=== PATIENT | male | born 1985 | race Caucasian/White ===

== ENCOUNTER 2023-11-02 20:58 | Inpatient (IN) | payer OTHER, SELFPAY ==
[2023-11-02] VITALS (25 sets, daily range): BP systolic 110–207; BP diastolic 59–122; PULSE 87–135; RESP 12–32; TEMP 36.6; O2SAT 95–100
--- NOTE | ~2023-11-02 | CT_ITS ---
EXAMINATION: CTA chest DATE: 11/02/2023 21:41 INDICATION: CP/ BP TECHNIQUE: Computed tomography angiography (CTA) of the chest was performed with 100 mL Omnipaque-350 intravenous contrast. Automated exposure control and iterative reconstruction technique were employe d. The dose-length product was 1018.62 mGy-cm. COMPARISON: X-ray chest same date; CT abdomen pelvis 11/02/2023. FINDINGS: CHEST: Considerable respiratory and patient motion present throughout the examination. Thoracic aorta: No significant dilation or calcification. Lung parenchyma and airways: Lungs and airways are clear. Thoracic inlet, axillae and chest wall: Considerable motion artifact in the lower neck. No axillary l ymphadenopathy. Mediastinum: No mass or lymphadenopathy. No central pulmonary embolus. Heart and pericardium: Mild cardiomegaly. No pericardial effusion. Coronary artery calcifications: Moderate. Pleura: No effusion or mass. Upper abdomen: No significant finding. Thoracic bones: No acute osseous finding in the chest. IMPRESSION: Motion limited examination. No aortic aneurysm or dissection. No definite acute thoracic process dete cted. Reviewed, dictated and finalized at location K. IMPRESSION: Motion limited examination. No aortic aneurysm or dissection. No definite acute thoracic process detected.
--- NOTE | ~2023-11-02 | CT_ITS ---
EXAMINATION: CT brain wo con DATE: 11/02/2023 22:44 INDICATION: AMS . TECHNIQUE: Computed tomography (CT) of the head was performed without intravenous contrast. The mA wa s adjusted according to patient size. Iterative reconstruction technique was employed. The dose-lengt h product was 832.33 mGy-cm. COMPARISON: None. FINDINGS: No acute intracranial hemorrhage or extra-axial fluid collection. No hydrocephalus, mass, or herniation. No acute ischemic infarct. Unremarkable dural venous sinus attenuation. No acute osseous abnormality. Ethmoid mucosal thickening, the remaining aerated spaces are clear. IMPRESSION: No acute intracranial process. Reviewed, dictated and finalized at location K.
--- NOTE | ~2023-11-02 | XR_ITS ---
EXAMINATION: XR chest 1V portable Exam Date/Time: 11/02/2023 21:15 CDT HISTORY: CP HIGH BP UNRESPONSIVE Comparison: None. RESULT: Lines, tubes, and devices: None. Lungs and pleura: Clear. Cardiomediastinal silhouette: Unremarkable. Other: No acute osseous or upper abdominal finding. IMPRESSION: No acute cardiopulmonary process. Reviewed, dictated and finalized at location K.
--- NOTE | 2023-11-02 21:05 | ECG_ITS ---
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 Measurements Intervals [place] Rate: 128 P: 45 IN: 136 QRS: 75 QRSD: 94 T: 18 QT: 331 QTc: 484 Interpretive Statements SINUS TACHYCARDIA No previous ECG available for comparison Electronically Signed On 11-03-2023 13:56:17 CDT by Serafin Naranjo M.D.
[2023-11-02] MEDS: ASPIRIN 81 MG CHEWABLE TABLET 324 MG PO (21:13)
[2023-11-02 21:18] LABS: Basophils Absolute Auto 0.1 K/mm3 (0.0-0.1); Basophils Percent Auto 0.6 % (0.2-1.2); Eosinophils Absolute Auto 0.1 K/mm3 (0-0.3); Eosinophils Percent Auto 1.1 % (0-4.4); Hematocrit 50.1 % (42.0-52.0); Hemoglobin 18.2 g/dL (14.0-18.0); Immature Granulocyte Absolute 0.03 K/mm3 (0.00-0.031); Immature Granulocyte Percent A 0.3 % (0-0.5); Lymphocytes Absolute Auto 3.11 K/mm3 (0.9-3.2); Lymphocytes Percent Auto 30.5 % (18.3-44.2); Mean Corpuscular HGB Conc 36.3 g/dl (32-36); Mean Corpuscular Hemoglobin 31.5 pg (26-34); Mean Corpuscular Volume 86.8 fl (80-100); Mean Platelet Volume 10.2 fl (7.4-10.4); Monocytes Absolute Auto 0.9 K/mm3 (0.1-0.6); Monocytes Percent Auto 8.4 % (2.6-8.5); Neutrophils Percent Auto 59.1 % (45.5-73.1); Platelet Count Result 239 k/mm3 (150-375); Red Blood Count 5.77 M/mm3 (4.6-6.20); White Blood Count 10.2 K/mm3 (4.5-10.0)
--- NOTE | 2023-11-02 21:25 | ED.CHESTPAIN ---
HPI - Chest Pain General Chief Complaint: Chest Pain Stated Complaint: chest pain, increased BP Time Seen by Provider: 11/02/23 21:15 History of Present Illness HPI narrative: Patient is a 38-year-old male who presents to the emergency department this evening complaining of chest pain for the past 3 weeks. Mother is present at bedside and provides the majority of the history of present illness as patient is a poor historian and refusing to give me a proper history of present illness. Patient is moving all 4 extremities spontaneously and maintaining his oxygenation at 97% on room air and protecting his airway. Mother states that he has been having a lot of stress at work the past couple of weeks and this chest pain. Patient is not elaborating on the character of the chest pain. Patient was also noted to be hypertensive with systolic blood pressure over 200. Mother denies any history of hypertension as far she is aware, patient is a diabetic. Mother also states that he does have a history of IV heroin use although he has not used any heroin for the past 8 years. She did state that he took a pill that a friend gave him a few days ago and believes it was Percocet. The remainder history of present illness is limited. Related Data Allergies Allergy/AdvReac Type Severity Reaction Status Date / Time Penicillins Allergy Unknown Verified 05/01/14 10:34 Review of Systems Review of Systems: All systems are reviewed and are negative unless stated otherwise in the [facility] Social History Social History Smoking status: Current every day smoker Alcohol intake: never Exam Narrative: General: Awake, afebrile, anxious, afebrile, diaphoretic. HEENT: PERRL, no rhinorrhea, no post nasal drip, oropharynx clear. Cardiovascular: Tachycardic with regular rhythm, no murmurs, rubs or gallops, no peripheral edema. Respiratory: Clear to auscultation bilaterally, no tachypnea, no wheezing, no rhonchi, no rubs, no respiratory distress. Abdomen: Soft, nontender, nondistended, no rebound, no guarding, no peritoneal signs. Musculoskeletal: Intermittent shaking of all 4 extremities. Skin: No rashes or petechia, no signs of infection. Neurological: Patient is moving all 4 extremities spontaneously, not cooperating with exam or following my commands, no focal deficits appreciated at this time, exam is limited secondary to patient's uncooperativeness and altered mentation. GCS 11. Course Vital Signs Vital signs: Vital Signs Pulse Rate 122 H 11/02/23 21:07 Temperature 97.8 F 11/02/23 21:08 Pulse Rate 100 11/02/23 22:51 Respiratory Rate 17 11/02/23 22:51 Blood Pressure 134/84 11/02/23 22:51 Pulse Oximetry 95 11/02/23 22:51 Oxygen Delivery Room Air 11/02/23 21:08 MDM - Chest Pain MDM Narrative Medical decision making narrative: The patient was evaluated by myself in the emergency department. History is obtained from patient and mother present at bedside and physical exam was performed. External medical records were reviewed at this time. IV was established and pertinent tests were ordered. Patient was placed on four-point restraints at this time to obtain IV and blood work as he is extremely agitated, uncooperative and refuses to sit still or follow any verbal commands. Patient was also administered 1 g of IV Ativan at this time. Patient was administered 1 L IV fluid bolus and 20 mg of IV labetalol given his a blood pressure of 226/103 mmHg. EKG was obtained which revealed sinus tachycardia rate of 128 beats per minute. No ST changes, T wave inversions or evidence of acute ischemia. EKG was independently interpreted by me and is currently pending official cardiology read. Repeat 3 hour EKG reveals sinus rhythm at a rate of 78 beats per minute. EKG currently pending official cardiology read. Laboratory results obtained revealing a potassium of 3.1, lact
[2023-11-02 21:29] LABS: Alanine Aminotransferase 26 U/L (6-50); Albumin Level 5.3 g/dL (3.5-5.1); Alkaline Phosphatase 78 U/L (38-126); Anion Gap 14 mmol/L (4-12); Aspartate Amino Transferase 27 U/L (17-59); Bilirubin,Total 1.2 mg/dL (0.2-1.3); Blood Urea Nitrogen 21 mg/dL (9-20); Calcium 9.1 mg/dL (8.4-10.2); Carbon Dioxide 20 mmol/L (22-30); Chloride 106 mmol/L (98-107); Estimated CRCL calculation 98 ml/min; Estimated Glomerular Filt Rate > 60; Glucose 185 mg/dL (65-110); Lipase 56 U/L (23-300); Magnesium 2.2 mg/dL (1.6-2.3); Potassium 3.1 mmol/L (3.4-5.0); Sodium 140 mmol/L (137-145)
[2023-11-02] MEDS: SODIUM CHLORIDE 0.9% IV 1,000 ML 999 ML IV CONT ×2 (21:30→22:06)
[2023-11-02] MEDS: LABETALOL HCL INJ 100 MG/20 ML VIAL 20 MG IV PUSH (21:31)
[2023-11-02 21:37] LABS: Partial Thromboplastin Time 20.2 Seconds (22.3-36.8); Prothrombin Time 13.2 Seconds (11.1-14.7)
[2023-11-02 21:42] LABS: Troponin I < 0.012 ng/mL (0.000-0.034)
[2023-11-02 21:44] LABS: Lactic Acid Reflex 2.6 mmol/L (0.7-2.0)
[2023-11-02] MEDS: ONDANSETRON INJ 4 MG/2 ML VIAL IV PUSH (21:50)
--- NOTE | 2023-11-02 21:51 | PC.NURSE ---
Per EDP Dr. Stuart give 2mg Narcan. Once Narcan was pulled from [facility] EDP Dr. Stuart advised to hold off on Narcan.
[2023-11-02 22:06] LABS: Creatine Kinase 301 U/L (55-170)
[2023-11-02 22:06] LABS: Barbiturate Screen Urine Negative (Negative); Benzodiazepines Screen Urine Negative (Negative)
[2023-11-02 22:07] LABS: Acetaminophen < 10 ug/mL (10-30); Salicylate < 1.0 mg/dL (2-20)
[2023-11-02] MEDS: LORazepam INJ (*CRX) 2 MG/ML VIAL 1 MG IV PUSH ×2 (22:13→22:52)
[2023-11-02 22:21] LABS: Cannabinoid Screen Urine Positive (Negative); Cocaine Screen Urine Negative (Negative); Methadone Screen Urine Negative (Negative); Opiate Screen Urine Negative (Negative); Phencyclidine Screen Urine Negative (Negative)
[2023-11-02 22:24] LABS: Add Urine Microscopic? YES; Appearance Urine Clear (Clear); Bacteria Urine None Seen /hpf; Bilirubin Urine Negative (Negative); Blood Urine Negative (Negative); Color Urine Dark Yellow (Yellow); Glucose Urine UA Negative (Negative); Ketones Urine 1+ mg/dL (Negative); Leukocyte Esterase Ur Negative LEU/UL (Negative); Mucus Urine Present /lpf; Need Manual Microscopic Reviewed; Nitrate Urine Negative (Negative); Protein Urine 1+ mg/dL (Negative); Specific Grav Ur 1.037 (1.001-1.035); Squamous Epithelial Cell Urine None Seen /hpf (Few); WBC Urine 0-5 /hpf (0-3); pH Urine 5.5 (5.0-9.0)
[2023-11-02 22:41] LABS: Influenza A QL RT-PCR Negative (Negative); Influenza B QL RT-PCR Negative (Negative); RSV RNA, RT-PCR Negative (Negative); SARS-CoV-2 RNA PCR Negative (Negative)
[2023-11-02 22:50] LABS: Amphetamine Screen Urine Positive (Negative)
--- NOTE | 2023-11-02 22:52 | PC.NURSE ---
upon entering the room patient was not able to speak. he was thrashing in the bed, tremors and shaking uncontrollably. family at bedside. mom states she spoke to a co-worker and he bought a percocet 2 days ago and also did meth 3 days prior. mom states that the co-worker also stated that he has not ate or drank anything in 3 days. patient unable to stay still for CT scan, provider aware and STAT order received for ativan. parents at bedside. patient in bed, seizure precautions initiated d/t uncontrollable movements. awaiting results
[2023-11-03] VITALS (38 sets, daily range): BP systolic 112–141; BP diastolic 62–93; PULSE 60–94; RESP 12–20; TEMP 36.4–36.9; O2SAT 96–100
--- NOTE | 2023-11-03 00:28 | PC.NURSE ---
Katy Matias - Mother -
--- NOTE | 2023-11-03 00:29 | ECG_ITS ---
[facility] [address] Test Date: 2023-11-03 Pat Name: Martín Calabrese Department: Room: Gender: M Index Clerk: : 1985 Requested By: Jonathan Hollingsworth Order Number: [id number] [place] MD: Serafin Naranjo M.D. Measurements Intervals [place] Rate: 78 P: 26 [place]: 148 QRS: 70 QRSD: 93 T: 20 QT: 372 QTc: 426 Interpretive Statements SINUS RHYTHM NONSPECIFIC T-WAVE ABNORMALITY Sinus tachycardia no longer present Electronically Signed On 11-03-2023 14:01:00 CDT by Serafin Naranjo M.D.
[2023-11-03 00:31] LABS: Reflex Lactic Acid Yes or No Add Lactic
--- NOTE | 2023-11-03 01:05 | PM.IMHP ---
H&P: HPI History of Present Illness Date/Time: 11/03/23 01:05 Chief Complaint: Chest pain Narrative: 38-year-old male with past medical history of morbid obesity, IV drug abuse and diabetes who presented to the ER with chest pain for a couple of weeks. The patient was altered in the ER and knock cooperative. Thus majority of the history was obtained from ER records and The patient is currently sedated is not providing history. In fact the patient has not provided any significant history since presentation to the ER. He told triage that he has been having chest pain for 3 weeks. He had called his mother just before he came to the ER and she arrived shortly there after. The mother reported to the ER staff that the patient has been having a lot of stress at work. Patient was unable or unwilling to elaborate on the character or nature of his chest pain. When patient arrived to the ER he was markedly hypertensive with systolic blood pressures over 200 and was tachycardic. Patient does not have a known history of hypertension but is diabetic. The patient does have a distant history of heroin use 8 years ago but was reportedly clean until he recently took a pill a friend gave him that was a Percocet according to the friends report. The patient's mother was able to contact the patient's friend who also newly informed her that the patient has been using methamphetamine for an unknown amount of time. Patient's mother is understandably upset about this is the patient had been living on the streets homeless and at the [facility] 8 years ago to his drug use. 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 She is quite concerned that his behaviors are going to compromise his current quality of life. Although the patient reportedly has history of diabetes he is not on any home meds. His initial glucose on arrival ER was 185 but came down to 110 after fluids. Had initial lactic acidosis had improved after 2 L fluid bolus. The patient's troponins had returned as negative x2 at the time of my evaluation. In the ER patient was so agitated that he required placement of 4 point soft restraints in addition to the 2 mg of Ativan. By the time my evaluation the patient was somnolent but would open his eyes to commands and would intermittently respond to commands such as sticking out his tongue. The patient would not give verbal responses to questions. Patient's blood pressures that were markedly elevated had improved somewhat with IV labetalol but completely normalized after Ativan administration. Review of Systems Review of Systems: ROS unobtainable: Yes unobtainable due to mental status PMFSH Past Medical History Medical History (Updated 11/03/23 @ 05:09 by Honey Waldrop DO) Intravenous drug abuse Obesity (BMI 30-39.9) Psychiatric illness History of risperidone use Type 2 diabetes mellitus Surgical History Surgical History (Updated 11/03/23 @ 05:09 by Honey Waldrop DO) History of excision of epidermal inclusion cyst (04/2015) From the back performed by Dr. 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 Smoking status: Current every day smoker Tobacco type: cigarettes Alcohol intake: never Substance use: current Substance use type: heroin, opiates and methamphetamine Meds Home Medications and Allergies Home Medications Medication Instructions Recorded Confirmed Type No Home Medications 11/03/23 11/03/23 History Allergies Allergy/AdvReac Type Severity Reaction Status Date / Time Penicillins Allergy Unknown Verified 05/01/14 10:34 Vital Signs
[2023-11-03 01:07] LABS: Troponin I < 0.012 ng/mL (0.000-0.034)
[2023-11-03 01:37] LABS: Lactic Acid 0.8 mmol/L (0.7-2.0)
--- NOTE | 2023-11-03 03:05 | ECG_ITS ---
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 Measurements Intervals [place] Rate: 97 P: 16 [place]: 148 QRS: 65 QRSD: 97 T: -10 QT: 349 QTc: 443 Interpretive Statements SINUS RHYTHM NONSPECIFIC T-WAVE ABNORMALITY Compared to ECG 11/03/2023 00:33:21 NO SIGNIFICANT CHANGES Electronically Signed On 11-03-2023 14:12:07 CDT by Serafin Naranjo M.D.
[2023-11-03 03:38] LABS: Troponin I < 0.012 ng/mL (0.000-0.034)
[2023-11-03 04:28] LABS: Glucose Point of Care 110 mg/dl (65-105)
--- NOTE | 2023-11-03 04:42 | ADMGEN ---
This patient, Martín Calabrese, was admitted to IMU Room 206-02. Patient/family oriented to hospital policies and general routines including ID bracelet, bed and alarms, visiting hours, pain management, procedures, bathroom and other care routines, personal items, smoking policy, room service/diet, and visiting hours. Information on how to activate the Rapid Response Team has been discussed. Patient/Family are encouraged to report perceived risks to care and to ask questions if they do not understand what they are told or what they should do.
[2023-11-03] MEDS: SODIUM CHLORIDE 0.9% IV 1,000 ML 150 ML IV CONT ×3 (06:33→18:52)
--- NOTE | 2023-11-03 08:06 | PM.IMPN ---
Progress Note: A&P Assessment and Plan (1) Acute alteration in mental status: Code(s): R41.82 - Altered mental status, unspecified Status: Acute (2) Chest pain: Code(s): R07.9 - Chest pain, unspecified Status: Acute (3) Polysubstance abuse: Code(s): F19.10 - Other psychoactive substance abuse, uncomplicated Status: Acute (4) Intravenous drug abuse: Code(s): F19.10 - Other psychoactive substance abuse, uncomplicated Status: Acute Plan 38-year-old male with past medical history of morbid obesity, IV drug abuse and diabetes who presented to the ER with chest pain for a couple of weeks. The patient was altered in the ER and knock cooperative. Thus majority of the history was obtained from ER records and The patient is currently sedated is not providing history. He told triage that he has been having chest pain for 3 weeks. He had called his mother just before he came to the ER and she arrived shortly there after. The mother reported to the ER staff that the patient has been having a lot of stress at work. Patient was unable or unwilling to elaborate on the character or nature of his chest pain. When patient arrived to the ER he was markedly hypertensive with systolic blood pressures over 200 and was tachycardic. Acute encephalopathy Possible due to substance abuse and hypertension cephalopathy History of methamphetamine abuse, drug screening positive marijuana and amphentermine chest pain. 3 neg cardiac enzymes. EKG shows sinus rhythm, tachycardia, T-wave inversion lead 3, T-wave flight AVF Chest pain was likely due to active intoxication with amphetamines causing hypertensive crisis. Telemetry monitoring Order echocardiogram Consult esthetician permanent makeup artist Hypertension emergency Patient present ED with high blood pressure 207/116, associated with confusion Blood pressure is controlled after receiving 1 dose of labetalol and Ativan. Start amlodipine 10 mg daily p.o. Anion gap metabolic acidosis Possible due to lactic acidosis Received fluid resuscitation, lactic acidosis resolves No obvious sign of infection Follow-up alcohol level Dehydration, hypokalemia Elevated BUN creatinine ratio Possible due to dehydration and inadequate electrolyte intake Received fluid resuscitation provide oral potassium supplementation due to mild hypokalemia. Repeat electrolyte panel in a.m.. agitation History of 2nd issue order, agitation likely secondary to amphetamine provide sinus 1 mg q.6 hours p.r.n., Ativan 0.5 mg IV p.r.n. for breakthrough of anxiety diabetes fasting Glucose 129, A1c 6.4 new diagnosed diabetes Start insulin sliding scale a.c. q.h.s. consult tire trucker Patient is unable to reliably report if he has home medications/rpyr-yia-utvliyu or prescription. Subjective Date/time seen: 11/03/23 08:06 Interval history: I saw exam patient today, patient was lethargic, but agitated intermittently, patient denies chest pain shortness breaths when I saw examined the patient. Exam Narrative: GENERAL: lethargic, in no acute distress. Well-nourished. - EYES: EOMI. Anicteric. - HENT: Moist mucous membranes. - LUNGS: Clear to auscultation bilaterally, no wheezing, rhonchi, or rales. - CARDIOVASCULAR: Regular rate and rhythm. No murmur. No JVD. - ABDOMEN: Soft, non-tender and non-distended. No palpable masses. - EXTREMITIES: No edema. Peripheral pulses 2+. Non-tender. - NEUROLOGIC: No focal neurological deficits. CN II-XII grossly intact. - PSYCHIATRIC: Awake, Alert and oriented x 3. agitated - SKIN: No rashes or lesions. Warm. - LYMPH: No cervical lymphadenopathy. Objective Data Vital Signs Vital Signs: Vital Signs - 24 hr 11/02/23 21:07 11/02/23 21:08 11/02/23 21:08 Temperature 97.8 F Pulse Rate 122 H 135 H Respiratory Rate 20 Blood Pressure 207/116 H Pulse Oximetry 97 100 Oxygen Delivery Room Air Room Air
--- NOTE | 2023-11-03 08:27 | PM.CNCAR ---
Assessment and Plan Assessment and plan (1) Chest pain: Code(s): R07.9 - Chest pain, unspecified Status: Acute Plan This is a 38-year-old man with a variety of symptoms on admission to the hospital among them was some chest discomfort. There is no evidence of acute coronary syndrome by ECG and serial troponin levels. It is presumably his amphetamine usage and amphetamine withdrawal that resulted in these symptoms that he is describing. He has no reason to be hospitalized cardiac-gutierrez and there is no need to conduct an ischemia evaluation in this setting. His disposition will be of course defer to the primary team there is no cardiac issue that would necessitate follow-up in our office Duncan Murrell MD [facility] History of Present Illness History of Present Illness Consult date/time: 11/03/23 08:27 Reason For Visit: AMS, Drug overdose/withdrawal Narrative: This is a 38-year-old man I am seeing at the request of the hospitalist because of chest pain. Patient is unknown to me prior to this consultation and is not known to have heart disease prior to this. He came to the emergency room yesterday with a variety of symptoms including a significant posterior headache the sensation of some central chest discomfort the sensation of paresthesias in both arms and he was concerned that his blood pressure was very high. He is says he visited the emergency room in 1 of the hospitals in [place] within the last several days at was seen and released he also went to an urgent care center who expressed concern that his blood pressure was very high. He states the symptoms began last weekend on Wednesday he told the emergency room they began 2-3 weeks ago. His electrocardiogram in the emergency room is unremarkable he has tried serial troponin levels on the chart which are also unremarkable. He in normal life does not have any exertional symptoms such as dyspnea chest pain he does not experience orthopnea PND edema palpitations and has no history of syncope. He unfortunately has a history of illicit drug abuse which I did not question him about in detail as the nurse warned me that the patient becomes violent when these issues are discussed. His drug screen on admission was positive for amphetamine and marijuana. Because of the symptoms I have been asked to see him in consultation. He says that he has a history of hypertension and non insulin-dependent diabetes and is on no medical treatment for any of these as he does not see a physician. Review of Systems Constitutional: Constitutional: Reports no additional constitutional complaints Eyes: Eyes: Reports no additional eye complaints ENT: Reports system reviewed and no additional complaints, except as documented Cardiovascular: Cardiovascular: Reports as per HPI Respiratory: Respiratory: Reports no additional respiratory complaints Gastrointestinal: Gastrointestinal: Reports no additional gastrointestinal complaints Musculoskeletal: Musculoskeletal: Reports no additional musculoskeletal complaints Neurologic: Reports as per HPI Psychiatric: Psychiatric: Reports as per HPI Endocrine: Endocrine: Reports no additional endocrine complaints Hematologic/Lymphatic: Hematologic/Lymphatic: Reports no additional hematologic/lymphatic complaints Allergic/Immunologic: Allergic/Immunologic: Reports no additional allergic/immunologic complaints [facility] Past Medical History Medical History (Updated 11/03/23 @ 05:09 by Honey Waldrop DO) Intravenous drug abuse Obesity (BMI 30-39.9) Psychiatric illness History of risperidone use Type 2 diabetes mellitus Surgical History Surgical History (Updated 11/03/23 @ 05:09 by Honey Waldrop DO) History of excision of epidermal inclusion cyst (04/2015) From the back performed by Dr. Sánchez Family History Family History (Updated 11/03/23 @ 05:09 by Honey Waldrop DO) Other Unknown family medical history Social History So
[2023-11-03] MEDS: amLODIPine BESYLATE 5 MG TABLET 10 MG PO (08:58)
[2023-11-03] MEDS: POTASSIUM CHLORIDE 20 MEQ ER TABLET 40 MEQ PO (08:58)
[2023-11-03 09:07] LABS: Basophils Percent Auto 0.7 % (0.2-1.2); Eosinophils Absolute Auto 0.1 K/mm3 (0-0.3); Eosinophils Percent Auto 2.4 % (0-4.4); Hematocrit 42.6 % (42.0-52.0); Hemoglobin 14.7 g/dL (14.0-18.0); Immature Granulocyte Absolute 0.02 K/mm3 (0.00-0.031); Immature Granulocyte Percent A 0.3 % (0-0.5); Mean Corpuscular HGB Conc 34.5 g/dl (32-36); Mean Corpuscular Hemoglobin 30.9 pg (26-34); Mean Corpuscular Volume 89.7 fl (80-100); Mean Platelet Volume 10.4 fl (7.4-10.4); Monocytes Absolute Auto 0.5 K/mm3 (0.1-0.6); Monocytes Percent Auto 7.7 % (2.6-8.5); Neutrophils Absolute Auto 3.5 K/mm3 (1.3-6.7); Neutrophils Percent Auto 59.9 % (45.5-73.1); Platelet Count Result 145 k/mm3 (150-375); Red Blood Count 4.75 M/mm3 (4.6-6.20); White Blood Count 5.9 K/mm3 (4.5-10.0)
[2023-11-03 09:09] LABS: Hematocrit 42.3 % (42.0-52.0); Hemoglobin 14.8 g/dL (14.0-18.0); Immature Platelet Fraction Pct 4.7 % (0.9-11.2); Mean Corpuscular Hemoglobin 31.4 pg (26-34); Mean Corpuscular Volume 89.6 fl (80-100); Mean Platelet Volume 10.3 fl (7.4-10.4); Platelet Count Result 144 k/mm3 (150-375); Red Blood Count 4.72 M/mm3 (4.6-6.20); White Blood Count 5.8 K/mm3 (4.5-10.0)
[2023-11-03] MEDS: NICOTINE (*PBKC) 21 MG PATCH 1 PATCH TRANSDERM (09:21)
[2023-11-03 09:23] LABS: Alanine Aminotransferase 20 U/L (6-50); Albumin Level 3.8 g/dL (3.5-5.1); Alkaline Phosphatase 50 U/L (38-126); Anion Gap 7 mmol/L (4-12); Aspartate Amino Transferase 19 U/L (17-59); Blood Urea Nitrogen 19 mg/dL (9-20); Calcium 8.3 mg/dL (8.4-10.2); Carbon Dioxide 22 mmol/L (22-30); Chloride 111 mmol/L (98-107); Creatine Kinase 179 U/L (55-170); Estimated CRCL calculation 112 ml/min; Estimated Glomerular Filt Rate > 60; Glucose 129 mg/dL (65-110); Potassium 3.6 mmol/L (3.4-5.0); Sodium 140 mmol/L (137-145)
[2023-11-03 09:25] LABS: Anion Gap 6 mmol/L (4-12); Blood Urea Nitrogen 18 mg/dL (9-20); Calcium 8.4 mg/dL (8.4-10.2); Carbon Dioxide 23 mmol/L (22-30); Chloride 110 mmol/L (98-107); Estimated CRCL calculation 112 ml/min; Estimated Glomerular Filt Rate > 60; Glucose 130 mg/dL (65-110); Magnesium 2.1 mg/dL (1.6-2.3); Phosphorus 3.7 mg/dL (2.5-4.5); Potassium 3.5 mmol/L (3.4-5.0); Sodium 139 mmol/L (137-145)
[2023-11-03 09:31] LABS: Hemoglobin A1C 6.4 % (<5.7)
[2023-11-03] MEDS: ALPRAZolam (*CRX) 0.5 MG TABLET 1 MG PO ×2 (09:55→17:19)
[2023-11-03] MEDS: LORazepam INJ (*CRX) 2 MG/ML VIAL 0.5 MG IV PUSH (20:17)
[2023-11-03 20:24] LABS: Glucose Point of Care 173 mg/dl (65-105)
[2023-11-04] VITALS (8 sets, daily range): BP systolic 120–160; BP diastolic 71–81; PULSE 56–89; RESP 12–20; TEMP 36.4–36.7; O2SAT 97–100
[2023-11-04] MEDS: SODIUM CHLORIDE 0.9% IV 1,000 ML 150 ML IV CONT (02:00)
[2023-11-04] MEDS: ALPRAZolam (*CRX) 0.5 MG TABLET 1 MG PO (04:11)
[2023-11-04 07:55] LABS: Glucose Point of Care 139 mg/dl (65-105)
[2023-11-04 08:03] LABS: Basophils Absolute Auto 0.1 K/mm3 (0.0-0.1); Eosinophils Absolute Auto 0.2 K/mm3 (0-0.3); Eosinophils Percent Auto 3.6 % (0-4.4); Hematocrit 41.7 % (42.0-52.0); Hemoglobin 14.6 g/dL (14.0-18.0); Immature Granulocyte Absolute 0.02 K/mm3 (0.00-0.031); Immature Granulocyte Percent A 0.4 % (0-0.5); Immature Platelet Fraction Pct 5.1 % (0.9-11.2); Lymphocytes Percent Auto 40.3 % (18.3-44.2); Mean Corpuscular Hemoglobin 31.3 pg (26-34); Mean Corpuscular Volume 89.5 fl (80-100); Mean Platelet Volume 11.2 fl (7.4-10.4); Monocytes Absolute Auto 0.3 K/mm3 (0.1-0.6); Monocytes Percent Auto 6.5 % (2.6-8.5); Neutrophils Absolute Auto 2.4 K/mm3 (1.3-6.7); Neutrophils Percent Auto 48.2 % (45.5-73.1); Platelet Count Result 112 k/mm3 (150-375); Red Blood Count 4.66 M/mm3 (4.6-6.20)
[2023-11-04 08:31] LABS: Anion Gap 6 mmol/L (4-12); Blood Urea Nitrogen 12 mg/dL (9-20); Calcium 8.3 mg/dL (8.4-10.2); Carbon Dioxide 19 mmol/L (22-30); Chloride 112 mmol/L (98-107); Estimated CRCL calculation 126 ml/min; Estimated Glomerular Filt Rate > 60; Glucose 134 mg/dL (65-110); Magnesium 1.9 mg/dL (1.6-2.3); Phosphorus 2.9 mg/dL (2.5-4.5); Potassium 4.2 mmol/L (3.4-5.0); Sodium 137 mmol/L (137-145)
[2023-11-04] MEDS: amLODIPine BESYLATE 5 MG TABLET 10 MG PO (08:34)
--- NOTE | 2023-11-04 10:22 | PM.IMPN ---
Progress Note: A&P Assessment and Plan (1) Acute alteration in mental status: Code(s): R41.82 - Altered mental status, unspecified Status: Acute (2) Chest pain: Code(s): R07.9 - Chest pain, unspecified Status: Acute (3) Polysubstance abuse: Code(s): F19.10 - Other psychoactive substance abuse, uncomplicated Status: Acute (4) Intravenous drug abuse: Code(s): F19.10 - Other psychoactive substance abuse, uncomplicated Status: Acute Plan 38-year-old male with past medical history of morbid obesity, IV drug abuse and diabetes who presented to the ER with chest pain for a couple of weeks. The patient was altered in the ER and knock cooperative. Thus majority of the history was obtained from ER records and The patient is currently sedated is not providing history. He told triage that he has been having chest pain for 3 weeks. He had called his mother just before he came to the ER and she arrived shortly there after. The mother reported to the ER staff that the patient has been having a lot of stress at work. Patient was unable or unwilling to elaborate on the character or nature of his chest pain. When patient arrived to the ER he was markedly hypertensive with systolic blood pressures over 200 and was tachycardic. Acute encephalopathy Possible due to substance abuse and hypertension cephalopathy History of methamphetamine abuse, drug screening positive marijuana and amphentermine now patient is alert oriented x3 chest pain. 3 neg cardiac enzymes. EKG shows sinus rhythm, tachycardia, T-wave inversion lead 3, T-wave flight AVF Chest pain was likely due to active intoxication with amphetamines causing hypertensive crisis. Telemetry monitoring Order echocardiogram Consult retail center receptionist, retail center receptionist recommends no further workup of cardiac ischemia Hypertension emergency Patient present ED with high blood pressure 207/116, associated with confusion Blood pressure is controlled after receiving 1 dose of labetalol and Ativan. Start amlodipine 10 mg daily p.o. changed to losartan 50 mg daily p.o. giving new onset diabetes Anion gap metabolic acidosis Possible due to lactic acidosis Received fluid resuscitation, lactic acidosis resolves No obvious sign of infection corrected Dehydration, hypokalemia Elevated BUN creatinine ratio Possible due to dehydration and inadequate electrolyte intake Received fluid resuscitation provide oral potassium supplementation due to mild hypokalemia. Repeat electrolyte panel in a.m.. corrected agitation History of 2nd issue order, agitation likely secondary to amphetamine provide sinus 1 mg q.6 hours p.r.n., Ativan 0.5 mg IV p.r.n. for breakthrough of anxiety well controlled diabetes fasting Glucose 129, A1c 6.4 new diagnosed diabetes Start insulin sliding scale a.c. q.h.s. consult clinical systems educator start metformin 500 mg daily p.o. on discharge provide patient above PCP contact information thrombocytopenia platelet 112, patient denies active bleeding request patient's stay for further workup, plans to consult police service technician for evaluation and treatment patient refuse to stay, we provide patient police service technician contact information and reach of police service technician office, police service technician will contact patient to schedule follow-up appointment Subjective Date/time seen: 11/04/23 10:22 Interval history: I saw examined the patient in present patient denies. Patient feels comfortable, denies chest pain abdomen pain nausea vomiting diarrhea. Patient afebrile, no O2 desaturation. Exam Narrative: GENERAL: Pleasant, in no acute distress. Well-nourished. - EYES: EOMI. Anicteric. - HENT: Moist mucous membranes. - LUNGS: Clear to auscultation bilaterally, no wheezing, rhonchi, or rales. - CARDIOVASCULAR: Regular rate and rhythm. No murmur. No JVD. - ABDOMEN: Soft, non-tender and non-distended. No palpable ma
--- NOTE | 2023-11-04 11:00 | PM.DS ---
DS: Admitting Diagnosis Discharge Date 11/03 Admitting Diagnosis acute encephalopathy DS: Discharge Diagnosis Discharge Diagnosis (1) Acute alteration in mental status: Code(s): R41.82 - Altered mental status, unspecified Status: Acute (2) Chest pain: Code(s): R07.9 - Chest pain, unspecified Status: Acute (3) Polysubstance abuse: Code(s): F19.10 - Other psychoactive substance abuse, uncomplicated Status: Acute (4) Intravenous drug abuse: Code(s): F19.10 - Other psychoactive substance abuse, uncomplicated Status: Acute DS: Summary Hospital Course Hospital Course: 38-year-old male with past medical history of morbid obesity, IV drug abuse and diabetes who presented to the ER with chest pain for a couple of weeks. The patient was altered in the ER and knock cooperative. Thus majority of the history was obtained from ER records and The patient is currently sedated is not providing history. He told triage that he has been having chest pain for 3 weeks. He had called his mother just before he came to the ER and she arrived shortly there after. The mother reported to the ER staff that the patient has been having a lot of stress at work. Patient was unable or unwilling to elaborate on the character or nature of his chest pain. When patient arrived to the ER he was markedly hypertensive with systolic blood pressures over 200 and was tachycardic. the following med issues have been addressed during hospitalization Acute encephalopathy Possible due to substance abuse and hypertension cephalopathy History of methamphetamine abuse, drug screening positive marijuana and amphentermine now patient is alert oriented x3 chest pain. 3 neg cardiac enzymes. EKG shows sinus rhythm, tachycardia, T-wave inversion lead 3, T-wave flight AVF Chest pain was likely due to active intoxication with amphetamines causing hypertensive crisis. Telemetry monitoring Order echocardiogram Consult thermit welding machine operator, thermit welding machine operator recommends no further workup of cardiac ischemia Hypertension emergency Patient present ED with high blood pressure 207/116, associated with confusion Blood pressure is controlled after receiving 1 dose of labetalol and Ativan. Start amlodipine 10 mg daily p.o. changed to losartan 50 mg daily p.o. giving new onset diabetes Anion gap metabolic acidosis Possible due to lactic acidosis Received fluid resuscitation, lactic acidosis resolves No obvious sign of infection corrected Dehydration, hypokalemia Elevated BUN creatinine ratio Possible due to dehydration and inadequate electrolyte intake Received fluid resuscitation provide oral potassium supplementation due to mild hypokalemia. Repeat electrolyte panel in a.m.. corrected agitation History of 2nd issue order, agitation likely secondary to amphetamine provide sinus 1 mg q.6 hours p.r.n., Ativan 0.5 mg IV p.r.n. for breakthrough of anxiety well controlled diabetes fasting Glucose 129, A1c 6.4 new diagnosed diabetes Start insulin sliding scale a.c. q.h.s. consult hematology nurse educator start metformin 500 mg daily p.o. on discharge provide patient above PCP contact information thrombocytopenia platelet 112, patient denies active bleeding request patient's stay for further workup, plans to consult field nurse for evaluation and treatment patient refuse to stay, we provide patient field nurse contact information and reach of field nurse office, field nurse will contact patient to schedule follow-up appointment Time Spent with Patient Time attestation: Total time spent providing and/or coordinating discharge services: Exam Narrative: GENERAL: Pleasant, in no acute distress. Well-nourished. - EYES: EOMI. Anicteric. - HENT: Moist mucous membranes. - LUNGS: Clear to auscultation bilaterally, no wheezing, rhonchi, or rales. - CARDIOVASCULAR: Regular rate and rhythm. No
[2023-11-04 11:56] LABS: Glucose Point of Care 138 mg/dl (65-105)
--- NOTE | 2023-11-04 12:43 | PC.NURSE ---
DISCHARGED HOME- PT VERBALIZED UNDERSTANDING OF MEDICATIONS AND IMPORTANCE OR FOLLOWING UP WITH PRIMARY MD AND NEW REFERRAL- DISCHARGED
== END 2023-11-04 12:50 | disposition home or self-care (01) | DRG 813 ==
LOC: ANHED 11-03 02:17 → ANHIMU 11-03 03:45
PROVIDERS: Admitting Provider Internal Medicine; Emergency Provider Emergency Medicine; Visit Provider Hospitalist
DX: D69.6 Thrombocytopenia, unspecified (principal); G92.8 Other toxic encephalopathy; E87.20 Acidosis, unspecified; I16.1 Hypertensive emergency; T43.625A Adverse effect of amphetamines, initial encounter; F19.10 Other psychoactive substance abuse, uncomplicated; E86.0 Dehydration; R07.89 Other chest pain; R41.82 Altered mental status, unspecified; E66.01 Morbid (severe) obesity due to excess calories; E11.9 Type 2 diabetes mellitus without complications; E87.6 Hypokalemia; F17.210 Nicotine dependence, cigarettes, uncomplicated; Z88.0 Allergy status to penicillin; Z20.822 Contact with and (suspected) exposure to COVID-19; Z68.37 Body mass index [BMI] 37.0-37.9, adult
CPT/HCPCS: 36415; 70450; 71045; 71275; 80048; 80053; 80307; 81001; 82550; 82948; 83036; 83605; 83690; 83735; 84100; 84484; 85025; 85027; 85055; 85610; 85730; 87637; 93005; 96361; 96374; 96375; 96376; 99285; A9270; J2060; J2310; J2405; J7030; Q9967

== ENCOUNTER 2023-11-23 11:33 | Outpatient (CLI) | payer OTHER, SELFPAY ==
[2023-11-23 12:01] LABS: Basophils Absolute Auto 0.1 K/mm3 (0.0-0.1); Eosinophils Absolute Auto 0.2 K/mm3 (0-0.3); Eosinophils Percent Auto 3.9 % (0-4.4); Hematocrit 43.5 % (42.0-52.0); Hemoglobin 15.5 g/dL (14.0-18.0); Immature Granulocyte Absolute 0.03 K/mm3 (0.00-0.031); Immature Granulocyte Percent A 0.5 % (0-0.5); Lymphocytes Absolute Auto 1.71 K/mm3 (0.9-3.2); Lymphocytes Percent Auto 28.7 % (18.3-44.2); Mean Corpuscular HGB Conc 35.6 g/dl (32-36); Mean Corpuscular Hemoglobin 31.3 pg (26-34); Mean Corpuscular Volume 87.7 fl (80-100); Mean Platelet Volume 10.7 fl (7.4-10.4); Monocytes Absolute Auto 0.5 K/mm3 (0.1-0.6); Monocytes Percent Auto 8.7 % (2.6-8.5); Neutrophils Absolute Auto 3.4 K/mm3 (1.3-6.7); Neutrophils Percent Auto 57.2 % (45.5-73.1); Platelet Count Result 133 k/mm3 (150-375); Red Blood Count 4.96 M/mm3 (4.6-6.20); Red Cell Distribution Width 11.9 % (11.5-14.5)
[2023-11-23 16:34] LABS: Iron 87 ug/dL (49-181)
[2023-11-23 16:37] LABS: Alanine Aminotransferase 25 U/L (6-50); Albumin Level 4.6 g/dL (3.5-5.1); Alkaline Phosphatase 80 U/L (38-126); Anion Gap 8 mmol/L (4-12); Aspartate Amino Transferase 22 U/L (17-59); Bilirubin,Total 0.7 mg/dL (0.2-1.3); Blood Urea Nitrogen 15 mg/dL (9-20); Calcium 9.4 mg/dL (8.4-10.2); Carbon Dioxide 24 mmol/L (22-30); Chloride 109 mmol/L (98-107); Estimated Glomerular Filt Rate > 60; Glucose 140 mg/dL (65-110); Potassium 4.1 mmol/L (3.4-5.0); Sodium 141 mmol/L (137-145)
[2023-11-23 16:43] LABS: Percent Iron Saturation 31 % (20-50)
[2023-11-23 17:43] LABS: Folic Acid 8.9 ng/mL (2.76->20)
[2023-11-26 22:19] LABS: Platelet Antibody, Direct NEGATIVE (NEGATIVE)
[2023-11-27 04:13] LABS: Methylmalonic Acid 108 nmol/L (55-335)
[2023-11-27 14:38] LABS: Soluble Transferrin Receptor 1.36 mg/L (0.76-1.76)
== END 2023-11-23 11:34 | disposition home or self-care (01) ==
PROVIDERS: PCP Clinical Nurse Specialist; Visit Provider Internal Medicine Hematology & Oncology
DX: D64.9 Anemia, unspecified (principal); D69.59 Other secondary thrombocytopenia
CPT/HCPCS: 36415; 80053; 82607; 82728; 82746; 83540; 83550; 83921; 84238; 85025; 85055; 86023

== ENCOUNTER 2023-12-22 09:50 | Outpatient (CLI) | payer OTHER, SELFPAY ==
--- NOTE | ~2023-12-22 | US_ITS ---
US abdomen complete EXAMINATION: US Abdomen Complete INDICATION: Abdominal pain PROCEDURE: Realtime High Resolution abdomen ultrasound. COMPARISON: No prior studies for comparison FINDINGS: Gallbladder within normal limits. No gallstones, pericholecystic fluid, gallbladder wall t hickening or biliary dilatation. Common bile duct measures 4 mm. Liver echotexture is increased, consistent with fatty infiltration.. Pancreas within normal limits. Pancreatic tail is obscured by bowel gas. Spleen is enlarged measuring 13.8 cm. Renal echotexture i s within normal limits bilaterally without hydronephrosis, contour deforming mass or renal stone. Rig ht kidney measures 12.8 cm. Left kidney measures 10.9 cm. Visualized aspects of the aorta and IVC are within normal limits. Portal vein is patent. No sonograph ic Dominguez's sign indicated by the technologist. There is a possible umbilical hernia. IMPRESSION: 1: Possible umbilical hernia. Consider correlation with CT. 2: Fatty infiltration of the liver. 3: Splenomegaly. Reviewed, dictated and finalized at location B.
== END 2023-12-22 09:51 | disposition home or self-care (01) ==
LOC: ANHIMG 09:54
PROVIDERS: PCP Clinical Nurse Specialist; Visit Provider Internal Medicine Hematology & Oncology
DX: D69.59 Other secondary thrombocytopenia (principal); K76.0 Fatty (change of) liver, not elsewhere classified; R16.1 Splenomegaly, not elsewhere classified
CPT/HCPCS: 76700